=== PATIENT | female | born 1950 | race Caucasian/White ===

== ENCOUNTER → 2017-11-10 | Outpatient (CLI) | payer MEDICARE, BC ==
[~2017-11-10] VITALS: Ht 152.4 cm; Wt 68.5 kg
[~2017-11-10] MED LIST: ACETAMINOPHEN-1 EAC1 ORAL; EDARBI40 MG ORAL; LEVOTHYROXINE75 MCG ORAL
[2017-11-10 09:19] VITALS: BP 126/67
--- NOTE | 2017-11-10 10:53 | GI Initial Consult Note ---
History of Present Illness General Date patient seen: November 10, 2017 Time patient seen: 10:43 Referring physician: ENRRIQUE Reason for Consultation: ABDOMINAL PAIN Present Illness HPI 67 year old female patient referred by Dr. Kolb for evaluation of abdominal pain. Patient presents with complaint of mid abdominal pain with diffusion and radiation to the RLQ/right flank area for approximately 2 weeks. Had colonoscopy many years ago, unsure of results. In addition has complaint of abdominal bloating and personal stress. Denies any unintentional weight loss or changes in dietary habits. No signs of abuse or neglect. Patient is not fall risk. Home Meds Reported Medications Acetaminophen With Codeine (T#3) (TYLENOL #3 TAB*) Y Tab, 1 TAB ORAL Q4H PRN, TAB 11/10/17 Azilsartan Medoxomil (EDARBI) 40 Mg Tablet, ORAL DAILY, TAB 11/10/17 Levothyroxine Sodium* (LEVOTHYROXINE SODIUM*) 75 Mcg Tablet, ORAL DAILY, TAB Take in the morning on an empty stomach, at least 30 minutes before food. 11/10/17 Med list reviewed/reconciled: Yes Allergies: Coded Allergies: No Known Allergies (Unverified , 11/10/17) Patient History History Provided By: Patient, Medical Record PMH Narrative HTN hypothyroidism Anxiety GERD Diverticulosis Kidney stones arthritis Past Surgical History: Bunion Family History Narrative Father >> CAD Mother >> Lung CA Social History: Denies: smoking, alcohol use, drug use, other Review of Systems All Other Systems: negative except mentioned in HPI Physical Exam Vital Signs Date Time Temp Pulse Resp B/P (MAP) Pulse Ox O2 Delivery O2 Flow Rate FiO2 11/10/17 09:19 98.3 56 16 126/67 96 98.3 Sp02 EP Interpretation: reviewed, normal General Appearance: well appearing, no apparent distress, alert Head: normocephalic EENT: PERRL/EOMI, normal ENT inspection Neck: supple Respiratory: normal breath sounds, no respiratory distress Cardiovascular: normal rate Gastrointestinal: normal inspection, non tender, soft, normal bowel sounds, non -distended Rectal: deferred Genitourinary: no CVA tenderness Musculoskeletal: normal inspection, back normal Neurologic: normal inspection, alert, oriented x3, responsive Psychiatric: normal inspection, judgement/insight normal, memory normal Skin: normal inspection, normal color, no rash, warm/dry, palpation normal, well hydrated Lymphatic: normal inspection, no adenopathy GI: Plan Problems: (1) Abdominal bloating (2) Abdominal pain (3) Diverticula of colon (4) Anxiety (5) GERD (gastroesophageal reflux disease) (6) HTN (hypertension) (7) Hypothyroidism (8) Kidney stone (9) Arthritis Plan Recommended EGD/colonoscopy and CT AP, but refused at this time due to future travel. Rx Bentyl Rx Elavil 20mg Rx Flexeril VSL #3 probiotic RTC x [address] Nolasco. Thank you for this patient referral. The patient was seen and examined at bedside and all new and available data was reviewed in the patients chart. I agree with the above findings, impression and plan. (Patient seen earlier today. Signature stamp does not reflect patient encounter time.). - MD Basilia Monroy AnhAmos KENDALL November 10, 2017 10:53
== END | disposition home or self-care (01) ==
LOC: PAN 09:02
DX: R14.0 Abdominal distension (gaseous) (principal); R10.9 Unspecified abdominal pain; K57.30 Diverticulosis of large intestine without perforation or abscess without bleeding; F41.9 Anxiety disorder, unspecified; K21.9 Gastro-esophageal reflux disease without esophagitis; I10 Essential (primary) hypertension; E03.9 Hypothyroidism, unspecified; M19.90 Unspecified osteoarthritis, unspecified site; Z87.442 Personal history of urinary calculi; Z80.1 Family history of malignant neoplasm of trachea, bronchus and lung; Z82.49 Family history of ischemic heart disease and other diseases of the circulatory system
CPT/HCPCS: 99202

== ENCOUNTER 2017-12-22 11:11 | Outpatient (CLI) | payer MEDICARE, BC ==
[2017-12-22 11:35] VITALS: BP 123/75
[2017-12-22] MEDS ORDERED: ZANTAC150 MG ORAL (15:31)
--- NOTE | 2017-12-22 16:54 | GI Progress Note ---
Assessment/Plan Problems: (1) Diverticulitis ICD Codes: K57.92 - Diverticulitis of intestine, part unspecified, without perforation or abscess without bleeding SNOMED: 301518541 (2) Arthritis ICD Codes: M19.90 - Unspecified osteoarthritis, unspecified site SNOMED: 4599455 (3) Anxiety ICD Codes: F41.9 - Anxiety disorder, unspecified SNOMED: 06725460 (4) GERD (gastroesophageal reflux disease) ICD Codes: K21.9 - Gastro-esophageal reflux disease without esophagitis SNOMED: 652242742 (5) Abdominal bloating ICD Codes: R14.0 - Abdominal distension (gaseous) SNOMED: 520541437 (6) Abdominal pain ICD Codes: R10.9 - Unspecified abdominal pain SNOMED: 45086000 Status: stable Status Narrative Seen with Dr. Nolasco. Assessment/Plan Recent Dx of sigmoid diverticulitis f/u today with c/o of RLQ pain GERD constipation Cipro + Flagyl x 10 days needs colonoscopy x 2 weeks. miralax 17gm qHS tylenol prn RTC for colonoscopy The patient was seen and examined at bedside and all new and available data was reviewed in the patients chart. I agree with the above findings, impression and plan. (Patient seen earlier today. Signature stamp does not reflect patient encounter time.). - Osmar Nolasco MD Subjective Subjective RLQ abdominal pain had recent ED visit to [facility] did not use rx of Flexeril and Bentyl recommended during last visit Objective Last 24 Hour Vital Signs Date Time Temp Pulse Resp B/P (MAP) Pulse Ox O2 Delivery O2 Flow Rate FiO2 12/22/17 11:35 97.9 61 123/75 97 97.9 General Appearance: WD/WN, no apparent distress, alert Cardiovascular: normal rate Respiratory/Chest: normal breath sounds, no respiratory distress Abdominal Exam: normal bowel sounds, non tender, soft Extremities: normal range of motion, non-tender Chele Cui [employer] ST[employer] Dec 22, 2017 16:54
== END 2017-12-22 11:44 | disposition home or self-care (01) ==
LOC: PAN 11:11
DX: K57.92 Diverticulitis of intestine, part unspecified, without perforation or abscess without bleeding (principal); M19.90 Unspecified osteoarthritis, unspecified site; F41.9 Anxiety disorder, unspecified; K21.9 Gastro-esophageal reflux disease without esophagitis; R14.0 Abdominal distension (gaseous); R10.9 Unspecified abdominal pain
CPT/HCPCS: 99201